=== PATIENT | male | born 1995 | race Caucasian/White ===

== ENCOUNTER 2018-02-08 15:43 | Emergency (ER) | payer BC ==
[~2018-02-08] VITALS: Ht 170.2 cm; Wt 63.5 kg
[2018-02-08 15:45] VITALS: BP_SYST 115; BP_SYST 135; BP_DIAS 64; BP_DIAS 72
[2018-02-08] MEDS ORDERED: DiphenhydrAMINE 50mg/ml Inj IM ONE (16:00)
[2018-02-08] MEDS ORDERED: LORazepam 0.5mg tab ORAL ONE (16:45)
[2018-02-08 17:10] VITALS: BP 120/64
--- NOTE | 2018-02-08 17:23 | Emergency Room Report ---
History of Present Illness General Chief Complaint: Allergic Reaction Source: EMS Present Illness HPI 22-year-old male presents to the emergency department complaining of generalized itchy rash with swelling of the posterior tongue and anxiousness status post eating dairy products when he has severe allergy to dairy products. Patient reports he self-administered EpiPen prior to arrival via ambulance. Patient denies pain he denies wheezing or throat swelling. Denies CP, Palpitations, LOC, AMS, dizziness, Changes in Vision, Sensation, paresthesias, or a sudden severe headache. Allergies: Coded Allergies: Dairy (Verified Allergy, Unknown, 02/08/18) Nursing Documentation-[facility] Past Medical History: No Stated History Physical Exam Vital Signs Date Time Temp Pulse Resp B/P (MAP) Pulse Ox O2 Delivery O2 Flow Rate FiO2 02/08/18 15:39 98.4 90 18 115/64 94 Room Air 98.4 Medical Decision Making PA Attestation Dr. beasley is my supervising Physician whom patient management has been discussed with. Diagnostic Impression: Primary Impression: Allergic reaction Qualified Codes: T78.40XA - Allergy, unspecified, initial encounter ER Course Pt. presents to the ED c/o itching and swelling of [ ] x [ ] Ddx considered but are not limited to cellulitis, allergic reaction, angio edema , abscess Vital signs: are WNL, pt. is afebrile H&PE are most consistent with allergic reaction to amoxicillin ORDERS: none required at this time, the diagnosis is clinical ED INTERVENTIONS: IM Benadryl , Prednisone PO, Ativan PO DISCHARGE: At this time pt. is stable for d/c to home. Will provide printed patient care instructions, and any necessary prescriptions. Care plan and follow up instructions have been discussed with the patient prior to discharge. Last Vital Signs Date Time Temp Pulse Resp B/P (MAP) Pulse Ox O2 Delivery O2 Flow Rate FiO2 02/08/18 17:10 83 17 120/64 100 Room Air 02/08/18 15:45 98.4 98.4 Disposition: HOME, SELF-CARE Condition: Stable Scripts Diphenhydramine Hcl (BENADRYL ALLERGY) 25 Mg Tablet 25-50 MG PO Q6HR, #20 TAB Prov: Domi Keita 02/08/18 Prednisone* (PREDNISONE*) 20 Mg Tablet 40 MG ORAL DAILY for 3 Days, #6 TAB Prov: Domi Keita 02/08/18 Epinephrine (Epipen 2-Kyle) 0.3 Mg/0.3 Ml Auto.injct 0.3 MG IM PRN, #1 EA Prov: Domi Keita 02/08/18 Referrals: NON PHYSICIAN (PCP) Patient Instructions: Food Allergy Additional Instructions: Take medications as directed. Follow up with a Primary Care Provider in 3-5 days, even if your symptoms have resolved. --Please review list of primary care clinics, if you do not already have a primary care provider Return sooner to ED if new symptoms occur, or current symptoms become worse. - Please note that this Emergency Department Report was dictated using [employer] technology software, occasionally this can lead to erroneous entry secondary to interpretation by the dictation equipment. Domi Keita Feb 08, 2018 17:23
[2018-02-08] MEDS ORDERED: BENADRYL ALLERG25 M1 PO (17:25)
[2018-02-08] MEDS ORDERED: PREDNISONE20 MG ORAL (17:25)
[2018-02-08] MEDS ORDERED: EPIPEN 2-P0.3 MG/0.3 IM (17:25)
[2018-02-08 17:33] VITALS: BP 107/77
== END 2018-02-08 17:34 | disposition home or self-care (01) ==
LOC: EDBD 15:43 → EMR 17:13
DX: T78.40XA Allergy, unspecified, initial encounter (principal); X58.XXXA Exposure to other specified factors, initial encounter
CPT/HCPCS: 96372; 99283; J1200; J7512